=== PATIENT | female | born 1945 | race Caucasian/White ===

== ENCOUNTER 2021-06-23 11:58 | Day surgery (SDC) | payer MEDICARE, SELFPAY ==
[2021-06-21 09:33] VITALS: BMI 25.9
[2021-06-23] VITALS (16 sets, daily range): BP systolic 101–157; BP diastolic 52–96; PULSE 76–98; RESP 10–18; TEMP 35.8–36.6; O2SAT 94–99; BMI 25.9
--- NOTE | 2021-06-23 12:22 | DI.RAD.S_ITS ---
PROCEDURE: XR KNEE RT 1TO2V INDICATIONS: prosthesis placement TECHNIQUE: 2 view(s) of the knee acquired. COMPARISON: [facility], CR, XR KNEE 4+ VIEWS RIGHT, 05/24/2021, 13:45. [facility], CR, XR KNEE 3 VIEWS RIGHT, 07/24/2020, 12:37. FINDINGS: Bones: Patient is status post knee joint arthroplasty. Hardware components are in expected positions. Visualized bony structures are intact. Soft tissues: Overlying postoperative changes are noted. IMPRESSION: Status post knee arthroplasty. Dictated by: Olive Alexis M.D. on 06/23/2021 at 16:04 Approved by: Olive Alexis M.D. on 06/23/2021 at 16:04
[2021-06-23] MEDS: PREGABALIN 75 MG CAPSULE PO (12:45)
[2021-06-23] MEDS: ACETAMINOPHEN 325 MG TABLET 975 MG PO (12:45)
[2021-06-23] MEDS: CELECOXIB 200 MG CAPSULE PO (12:45)
--- NOTE | 2021-06-23 12:47 | PM.PREOP ---
Pre-operative Note COVID-19 COVID-19 status: Negative Result date/Date tested (Pos, Neg/Pending): 06/22/21 Interval Note History & Physical reviewed/Exam performed by Physician: Yes Changes to H&P: No
[2021-06-23] MEDS: LACTATED RINGERS 1,000 ML 42 ML IV ×2 (13:13→16:13)
--- NOTE | 2021-06-23 13:45 | P.OP_ITS ---
Operative Date/Time/Diagnoses Date of procedure: 06/23/21 Time of procedure: 15:14 Pre-op diagnosis: Right knee osteoarthritis Post-op diagnosis: same Procedure & Clinicians Procedure: Right total knee replacement Same procedure as scheduled: Yes Indications: The patient has had progressively worsening right knee pain with radiographic changes consistent with arthritis. Non-operative management has failed and the patient has requested total knee replacement. The risks, benefits and alternatives to surgery were discussed with the patient prior to proceeding. Risks discussed included, but were not limited to, failure to relieve pain, stiffness, infection, nerve damage, deep venous thrombosis, pulmonary embolism, stroke, coma, heart attack, permanent paralysis and , as well as the potential need for eventual revision of the prosthetic. Surgeon: Ed Vasques Process Safety Management Engineer: Yuliana Can Click Yes if Unassisted: No Anesthesia Type: General, Spinal and Local Operative Notes Findings: Severe tricompartmental osteoarthritis Closure Type: primary Specimen(s): none sent Prosthetic devices, grafts, tissues, transplants, or devices: Implants used in this procedure were manufactured by the [employer] and [employer] and included the BCS II Journey total knee replacement with a size 5 right cobalt chromium femur, a size 4 right non porous tibial base plate, 12 mm cross-linked polyethylene tibial insert and a 29 mm oval Beata II patella. Applied: implant(s) Estimated Blood Loss (mL): 50 Blood products transfused: none Tourniquet time (min): 50 Procedure in detail: The patient was seen in the pre-operative area, where the patient identified the right knee as the operative site and this was marked with my initials. The patient received pre-operative antibiotics, and was taken to the operating room and placed on the operative table in the supine position. After satisfactory anesthesia, a carbon lamp cleaner out was performed. The right leg was encircled with a tourniquet about the proximal thigh, and the leg was prepared from the toes to the tourniquet with ChloroPrep in the usual fashion and draped through sterile drapes. The leg was elevated and exsanguinated with Eschmark bandage and the tourniquet inflated to 250 mmHg pressure. The knee was approached through an approximately 18 cm incision centered over the patella and carried into the knee through a medial parapatellar arthrotomy. The anterior osteophytes and soft tissues were removed. The rotational landmarks of [place]'s line and the transepicondylar axis were marked on the femur with electrocautery, and intramedullary guide holes for the femur and tibia were created. The distal femoral cut was made in 6 degrees of valgus using the intra medullary guide at the primary cut setting. The proximal tibial cut was then made using the intramedullary guide, taking 9 mm of bone off the less involved side. The extension gap was checked and the rotation of the femoral component confirmed with the gap balancing system. The anterior, posterior and chamfer cuts were then made. The posterior osteophytes and soft tissues were then removed. The posterior capsule was injected with part of a mixture of 60 ml 0.25% Marcaine mixed with 20 ml Exparel and 4 mg of morphine for post-operative pain control. The remainder of this mixture was injected into the capsule and subcutaneous tissues during cement curing. The tibia was prepared with the rotation set by an extra medullary guide. Trial tibial and femoral components were then placed and the intercondylar notch cut through the femoral trial. Range of motion was 0-135 degrees, with good stability throughout the range. The patella was then cut to accommodate the patellar prosthetic. There was no need for a lateral release. The trials were then removed, and the femoral hole plugged with a bone plug. The bone was prepared with pulsatile lavage, and dried with a sponge. Cement was applied and the final prosthetics placed. Excess cement was removed during and after cement curing. After confirming there was no extruded cement posteriorly, the final tibial insert was placed. The knee was copiously irrigated and the tourniquet deflated. Hemostasis was obtained. The capsule was closed with interrupted # 2 polyester suture. The subcutaneous layer was closed with 3-0 Vicryl, and the skin with a running 3-0 V-Lock suture and Dermabond. An Aquacel Ag dressing was applied and the patient was taken to recovery having tolerated the procedure well. Complications: none Post-operative Condition: stable Disposition: PACU Plan for aftercare: The patient will be maintained on a standard total knee replacement protocol with weight bearing as tolerated. The patient will receive aspirin and sequential compression devices for DVT prophylaxis. The patient will be discharged home when safe for the home environment.
[2021-06-23] MEDS: CEFAZOLIN 2 GM/20 ML SYRINGE IV (13:50)
[2021-06-23] MEDS: TRANEXAMIC ACID 1,000 MG VIAL 1000 MG INJ ×2 (13:55→14:56)
--- NOTE | 2021-06-23 14:13 | SUR.OPER ---
Supine on padded OR bed. Pillow under head, arms secured on padded armboards <90 degree abduction. Safety belt across torso. Left leg secured with tape over blanket over lower leg. Right leg secured in DeMayo positioner. Foam padded brace at thigh of right leg.
[2021-06-23] MEDS: MORPHINE 4 MG/ML INJ INJ (14:45)
[2021-06-23] MEDS: BUPIVACAINE 0.25% W/ EPI 30 ML VIAL 60 ML INJ (14:45)
[2021-06-23] MEDS: BUPIVACAINE LIPOSOME 266 MG/20 ML VIAL INJ (14:45)
--- NOTE | 2021-06-23 15:59 | SUR.PHASEI ---
Pt complained of a some difficulty breathing and that it does feel that like she has felt this way before when she was anxious. Pt lungs clear, denies SOB. O2 sat 95% on RA. Dr Brown here to discuss with patient as she says now she feels weird and that she doesn't like to be drugged. Plan with MD for patient to rest and let drugs wear off.
--- NOTE | 2021-06-23 16:34 | SUR.PHASEI ---
Patient transferred to room 216 in bed on room air with SBAR report to Seamus REMY at bedside. Pt continues to state she feels weird and reports she doesn't even like how a beer makes her feel. Encouraged patient to be patient and let anesthesia wear off. Sundar call and will come in to see patient. VSS stable, call light in reach.
[2021-06-23] MEDS: LACTATED RINGERS 1,000 ML 100 ML IV (17:28)
[2021-06-23] MEDS: ACETAMINOPHEN 325 MG TABLET 650 MG PO (17:29)
[2021-06-23] MEDS: IBUPROFEN 400 MG TABLET PO ×2 (17:29→20:48)
[2021-06-23] MEDS: atenoloL 25 MG TABLET 12.5 MG PO (20:46)
[2021-06-23] MEDS: DOCUSATE 100 MG CAPSULE PO (20:49)
[2021-06-23] MEDS: ASPIRIN EC 81 MG TABLET PO (21:30)
[2021-06-24] VITALS: BP 150/82; PULSE 78; RESP 16; TEMP 36.4; O2SAT 99
[2021-06-24] MEDS: ACETAMINOPHEN 325 MG TABLET 650 MG PO ×3 (02:45→12:08)
[2021-06-24] MEDS: IBUPROFEN 400 MG TABLET PO ×4 (02:46→12:09)
[2021-06-24] MEDS: LACTATED RINGERS 1,000 ML 100 ML IV (02:47)
[2021-06-24 04:05] VITALS: BP 164/99; PULSE 87; RESP 16; TEMP 36.2; O2SAT 96
[2021-06-24 05:14] LABS: Hematocrit 35.1 % (36-46)
--- NOTE | 2021-06-24 07:46 | PM.DS.1 ---
History of Present Illness History of Present Illness Date Patient Seen: 06/24/21 Time Patient Seen: 07:46 Chief complaint: No complaints Narrative: Patient denies pain. No fever chills. No nausea vomiting. Patient has assistance at home. Discharge Providers Provider Discharge Date: 06/24/21 Consults: 06/23/21 16:14 Consult to Discharge Planning Routine Comment: Consult to Physical Therapy Evaluate & Treat Comment: Physician Instructions: postop TKA protocol Discharge provider: Alan Preston PA-C Summary Hospital Course Discharge Diagnosis: Right knee osteoarthritis Hospital Course: Right total knee replacement Same procedure as scheduled: Yes Indications: The patient has had progressively worsening right knee pain with radiographic changes consistent with arthritis. Non-operative management has failed and the patient has requested total knee replacement. The risks, benefits and alternatives to surgery were discussed with the patient prior to proceeding. Risks discussed included, but were not limited to, failure to relieve pain, stiffness, infection, nerve damage, deep venous thrombosis, pulmonary embolism, stroke, coma, heart attack, permanent paralysis and , as well as the potential need for eventual revision of the prosthetic. Surgeon: Ed Vasques Production Mechanic Tin Cans: Yuliana Can Click Yes if Unassisted: No Anesthesia Type: General, Spinal and Local Operative Notes Findings: Severe tricompartmental osteoarthritis Closure Type: primary Specimen(s): none sent Prosthetic devices, grafts, tissues, transplants, or devices: Implants used in this procedure were manufactured by the [employer] and included the BCS II Journey total knee replacement with a size 5 right cobalt chromium femur, a size 4 right non porous tibial base plate, 12 mm cross-linked polyethylene tibial insert and a 29 mm oval Beata II patella. Applied: implant(s) Estimated Blood Loss (mL): 50 Blood products transfused: none Tourniquet time (min): 50 Patient admitted to the hospital for right total knee arthroplasty. Patient consented to the same. Patient underwent right total knee arthroplasty on June 23, 2021. Patient back in her room and is in stable condition. Patient will work with physical therapy and be discharged home if safe for home environment. Exam Vital Signs (past 8 hours): - 06/24/21 00:00 06/24/21 04:05 Temperature 97.5 F L 97.1 F L Pulse Rate 78 87 Respiratory Rate 16 16 Blood Pressure 150/82 H 164/99 H Pulse Oximetry 99 96 Oxygen Delivery Method Room Air Oxygen Flow Rate 0 Narrative Exam Narrative: 68-year-old female resting comfortably in bed in no apparent distress. Right knee dressing is Clean, dry, intact.. Motor functions intact distally. Sensation grossly intact distally. Objective Labs Result Diagrams: 06/24/21 04:40 Labs: Laboratory Results - last 24 hr 06/24/21 04:40 Hgb 12.0 Hct 35.1 L PFSH Medical History Anxiety COVID-19 virus infection (10/2020) HTN (hypertension) Osteoarthritis Osteopenia Osteoporosis Recurrent sinusitis RLS (restless legs syndrome) Surgical History No history of previous surgery Family History Mother Cancer Social History household members: spouse Smoking Status: Never smoker alcohol intake: current Discharge Assessment & Plan Assessment and Plan Assessment: Patient progressing as expected status post right total knee arthroplasty Plan of Treatment: Mobilize with physical therapy patient to be maintained on standard total Knee protocol Multimodal pain management Discharge home after physical therapy if safe for home environment. Discharge Plan Discharge Plan Patient Disposition: Home Discharge orders & Medications Discharge Orders: Discharge (Order); Ordered 06/24/21 Ordered By: Alan Preston Prescriptions: New acetaminophen 325 mg Tablet 650 mg PO Q6HR Qty: 60 0RF polyethylene glycol 3350 17 gram Powder In Packet 17 gm PO DAILY PRN (Reason: Constipation) Qty: 20 0RF aspirin 81 mg Tablet,Delayed Release (Dr/Ec) 81 mg PO BID Qty: 60 0RF ibuprofen 400 mg Tablet 400 mg PO Q4HR Qty: 60 0RF oxycodone 5 mg Tablet 5 mg PO Q3HR PRN (Reason: Pain, Moderate (4-6)) Qty: 60 0RF Continued atenolol 25 MG tablet 12.5 mg PO BID Qty: 0 0RF Follow up/Referrals: Ed Vasques MD [Physician] - (2 weeks) Diet/Activity/Treatments Diet: Diet as Tolerated Activity: Weight-bearing as tolerated Cold/Heat Therapy: Ice to knee as needed Skin/Wound/Dressing Care Report to your healthcare provider any signs of infection, such as:: chills, fever, increased pain, unusual drainage and unusual redness Dressing: Keep dressing clean and dry, may remove Jacinto wrap in 24-48 hours[address] Leave dressing in place. Visit Report/Discharge Packet Instructions: DI for Knee Replacement Stand Alone Forms: Surgery Discharge Discharge Data Attending Provider: Ed Vasques
[2021-06-24 08:00] VITALS: BP 135/73; PULSE 77; RESP 14; TEMP 36.3; O2SAT 98
[2021-06-24] MEDS: atenoloL 25 MG TABLET 12.5 MG PO (09:10)
[2021-06-24] MEDS: ASPIRIN EC 81 MG TABLET PO (09:10)
[2021-06-24] MEDS: DOCUSATE 100 MG CAPSULE PO (09:10)
--- NOTE | 2021-06-24 09:14 | CM.DANOTE ---
Initial DCP Assessment Note Pt is a 76 yo female, resident of [facility] (near [facility]), now POD#1 from Right Uni knee by Dr Vasques PCP: Martin Staples Payer: POLI Reviewed chart, Therapy evals are pending this morning. Patient hopeful to return home w/family today and DC order from Ortho has already been initiated this morning. DC planning team following along closely and will remain available in case any DC needs or concerns arise before DC, awaiting input from therapy team MUKUL Leon Discharge Planning/Care Management CM Discharge Assessment Start: 06/24/21 09:11 Freq: Status: Active Protocol: Document 06/24/21 09:11 AMY (Rec: 06/24/21 09:14 AMY [id number]) Discharge Planning Assessment Assigned Rn Care Manager MUKUL Hardin DPOA/Assigned Designee Name Sundar Izaguirre, spouse Contact Information [phone] Advance Directives? Yes Advance Directives on File No History Provided By Patient,Medical Record Prior Living Arrangements House Household Members spouse Type of transporation used prior to Drives own vehicle admit Comment Lives on [facility], [facility] Independent with ADL's Yes Is patient alert and oriented? Yes Comment Patient hopeful to return home w/spouse, therapy eval pending today Discharge Plan Home Transportation Arrangement Family Referrals Initiated None needed
--- NOTE | 2021-06-24 11:05 | PT.IIE ---
Current Diagnoses Unilateral primary osteoarthritis, right knee (06/23/21) Surgery Performed Operation Date: 06/23/21 13:45 Actual Procedures p Total Knee Arthroplasty(Right) - Ed Vasques MD Medical History (Last Reviewed 06/24/21 @ 07:48 by Alan Preston PA-C) Anxiety COVID-19 virus infection (10/2020) HTN (hypertension) Osteoarthritis Osteopenia Osteoporosis Recurrent sinusitis RLS (restless legs syndrome) Physical Therapy Inpatient Evaluation/Re-Eval M1 PT/OT-IP Prior Functional Status Start: 06/24/21 14:10 Freq: NEEDED Status: Active Protocol: Document 06/24/21 11:05 AB (Rec: 06/24/21 14:29 AB [id number]) Medical Review Prior Functional Status Medical History Reviewed Yes Communication able to make needs known Mobility and Gait pt stated that she is independent with all mobilities and ambulation without AD but tends to furniture cruise Social History Household Members spouse Living Arrangements House Number of Floors (Floors) One Floor Number of Stairs To Enter/Railing? 1 step to enter and 1 step to the kitchen Home Equipment Front Wheel Walker,Bedside Commode Additional Social History Comment pt has a tub but without a shower M2 PT-IP Current Condition Start: 06/24/21 14:10 Freq: NEEDED Status: Active Protocol: Document 06/24/21 11:05 AB (Rec: 06/24/21 14:29 AB [email or web address]) Physical Therapy Current Condition Current Condition Evaluation Date 06/24/21 Treatment Diagnosis s/p R TKA; difficulty in walking Onset Date 06/23/21 M3 PT-IP Subjective Start: 06/24/21 14:10 Freq: NEEDED Status: Active Protocol: Document 06/24/21 11:05 AB (Rec: 06/24/21 14:29 AB [email or web address]) Subjective Physical Therapy Visit Type Type Initial Evaluation Visit Start Time 11:05 Visit Stop Time 11:45 Total Visit Minutes 40 Number of CASHIER RECEPTIONIST Visits 0 Physical Therapy Visit Comments Patient Comments agreeable to do PT Therapy Pain Assessment Pain When Pain Assessed At Rest Pain Present Pain Present Pain Reported Location Right Knee Intensity 1 Scale Used Numeric (0 - 10) Pain Management Techniques Apply Cold,Distraction, Modification of Treatment,Re- positioning,Timing of Activity with Medications M4 PT-IP Mobility and Gait Start: 06/24/21 14:10 Freq: NEEDED Status: Active Protocol: Document 06/24/21 11:05 AB (Rec: 06/24/21 14:29 AB [id number]) PT-Bed Mobility Assessment Supine to Sit Supine to Sit Standby Assistance Sit to Supine Sit to Supine Standby Assistance PT-Transfer Assessment Sit to and From Stand Sit to and from Stand Standby Assistance Equipment Transfer Assistive Device Gait Belt,Front Wheeled Walker Orthotic/Prosthetic Devices or Brace: No Transfers Transfer Destination Bed,Chair Transfer Technique ambulated Transfer Ability Level of Assist Standby Assistance,1 Person Assistance,Use of Upper Extremities Comments Mobility Comments pt coming out from using the toilet and ambulating using FWW SBA and ambulated towards the sink SBA using FWW and able to maintain standing balance using FWW SBA while completing handwashing. pt with stooped posture during ambulation. pt ambulated to the chair and rested. pt educated on safety and upright posture. completed sit to stand from the chair SBA and ambulated to the bed using fWW SBA. completed sit<> supine SBA x 2 sets. educated on techniques. pt agreed to do stairs. completed sit to stand from the bed SBA and cues for techniques, upright posture and safety. ambulated ~ 150 ft using FWW SBA and occasional CGA and cues for upright posture. completed up/ down platform step using FWW x 2 sets: CGA on first set and cues but able to complete 2nd set with SBA. pt ambulated back to the room using FWW SBA. pt sat on the chair. positioned. ice pack provided. call light and table placed within reach. Gait Assessment Gait Gait Assistance Required: Standby Assistance,Contact Guard Assist Distance (Feet) 150 Able to Maintain Weight Bearing Status Yes During Gait Assistive Devices Assistive Device Gait Belt,Front Wheeled Walker Orthotic/Prosthetic Devices or Brace: No Gait Deviations General Gait Pattern Antalgic,Decreased Stride Length,Decreased Feet Clearance,Flexed Trunk Factors Limiting Gait Function Factors Limiting Gait Function Decreased Activity Tolerance, Decreased Strength,Limited Range of Motion,Pain,Poor Balance Stair Climbing Assessment Evaluation Level of Assist On Stairs Standby Assistance,Contact Guard Assistance Devices Stair Climbing Assistive Devices Front Wheel Walker Technique/Endurance Stair Climbing Direction Ascend and Descend Stair Climbing Technique Step to Step Number of Steps Climbed 1 Query Text: Stair Climbing Set # Repetitions (reps) 2 PT-Balance Assessment Sitting Balance and Reactions Static Sitting Balance Ability Normal Dynamic Sitting Balance Ability Normal Standing Balance and Reactions Static Standing Balance Ability Fair Dynamic Standing Balance Ability Fair Device Used FWW M5 PT-IP Objective Assessments Start: 06/24/21 14:10 Freq: NEEDED Status: Active Protocol: Document 06/24/21 11:05 AB (Rec: 06/24/21 14:29 [email or web address]) Orientation Orientation/Cognition Level of Alertness Alert Orientation Name,Place,Situation Language Function Ability No Deficits Noted Safety Awareness Understands Safety Issues Memory Description No Deficits Noted Gross Range of Motion Lower Extremity ROM Impairments R knee flexion: ~ 100 deg R knee extension: ~ 10 deg less to 0 Strength Lower Extremity Strength Assessment Right Impaired Hip 4/5 Knee 3+/5 Coordination Assessment Gross Coordination Gross Coordination WNL Sensation Assessment Sensation Gross Sensation WNL Muscle Tone Muscle Tone WNL Yes M6 PT-IP Treatment Start: 06/24/21 14:10 Freq: NEEDED Status: Active Protocol: Document 06/24/21 11:05 AB (Rec: 06/24/21 14:29 [email or web address]) Physical Therapy Treatment Education Education Provided Precautions,Weight Bearing Status,Post-Op Packet,Safety M7 PT-IP Assessment and Plan Start: 06/24/21 14:10 Freq: NEEDED Status: Active Protocol: Document 06/24/21 11:05 AB (Rec: 06/24/21 14:29 [email or web address]) PT Summary Assessment and Plan Potential Rehabilitation Potential Good Status of Condition at Evaluation Stable Summary Impairments Pain,ROM,Strength,Balance, Coordination,Sensation,Tone, Cognition,Bed Mobility, Transfers,Gait,Activity Tolerance Assessment Summary pt requiring sBA with mobility using FWW and plans to go home and spouse to assist her. pt stated that she has outpt set up. pt may go home when medically stable. Goals Bed Mobility Goal Independent Transfer Goal Independent,Front Wheeled Walker Gait Goal Independent,Front Wheel Walker Gait Distance 300 Other Goals up/down 1 step using FWW mod I Days to Meet Goals 3 Frequency of Treatment Frequency Of Treatment Twice a Day Treatment Plan Physical Therapy Treatment Plan Bed Mobility Training,Transfer Training,Gait Training, Therapeutic Exercise,Balance Retraining,Post Op Education, Discharge Planning,Hot or Cold Pack,Neuromuscular Re-ed, Coordination Retraining,Manual Therapy Weight Bearing Status Weight Bearing Status Weight Bear as Tolerated Allowed Weight Bearing Amount (enter % RLE WBAT or #) (%) Recommendations To Nursing Amount of Assist Needed Standby Assistance Discharge Recommendations PT Discharge Recommendations Home with Assistance, Outpatient PT Transportation Needs at Discharge Private Vehicle
== END 2021-06-24 12:58 | disposition home or self-care (01) ==
LOC: OR 12:03 → AC 12:03
PROVIDERS: Referring Provider Orthopaedic Surgery; Visit Provider Orthopaedic Surgery
PROC: 0SRC0JZ Replacement of Right Knee Joint with Synthetic Substitute, Open Approach (ICD-10-PCS; CPT 27447; principal; 2021-06-23 13:45)
DX: M17.11 Unilateral primary osteoarthritis, right knee (principal); I10 Essential (primary) hypertension; F41.9 Anxiety disorder, unspecified
CPT/HCPCS: 27447; 36415; 73560; 85014; 85018; 97161; 97530; C1776; C1713; C9290; J0690; J1100; J2250; J2270; J2405; J2704; J3010